=== PATIENT | male | born 1980 | race African-American/Black ===

== ENCOUNTER 2018-01-11 13:03 | Emergency (ER) | payer SELFPAY ==
[2018-01-11 13:46] LABS: ADD MAN DIFF? NO
[2018-01-11 13:47] LABS: BASOPHILS % 0.3 % (0.0-2.0); EOSINOPHILS # 0.1 10^3/ul (0.0-0.5); EOSINOPHILS % 0.9 % (0.0-7.0); HEMATOCRIT 48.1 % (42.0-52.0); HEMOGLOBIN 15.4 g/dl (14.0-18.0); LYMPHOCYTES # 1.6 10^3/ul (0.8-2.9); LYMPHOCYTES % 21.2 % (15.0-51.0); MEAN CORPUSCULAR HEMOGLOBIN 29.6 pg (29.0-33.0); MEAN CORPUSCULAR VOLUME 92.5 fl (82.0-101.0); MEAN PLATELET VOLUME 8.9 fl (7.4-10.4); MONOCYTE # 0.4 10^3/ul (0.3-0.9); MONOCYTES % 5.6 % (0.0-11.0); NEUTROPHIL # 5.4 10^3/ul (1.6-7.5); NEUTROPHILS % 71.9 % (39.0-77.0); PLATELET COUNT 252 10^3/UL (140-415); RED CELL DISTRIBUTION WIDTH 12.8 % (11.5-14.5)
[2018-01-11 13:47] LABS: WHITE BLOOD COUNT 7.6 10^3/ul (4.8-10.8)
[2018-01-11] MEDS: ASPIRIN 81 MG TAB PO (13:55)
[2018-01-11] MEDS: SOD CHLORIDE 0.9% 1,000 ML IV (13:55)
[2018-01-11 14:09] LABS: ALANINE AMINOTRANSFERASE 31 IU/L (13-69); ALBUMIN 4.7 g/dl (3.3-4.9); ALBUMIN/GLOBULIN RATIO 1.56; ALKALINE PHOSPHATASE 79 IU/L (42-121); ANION GAP 13 (8-16); ASPARTATE AMINO TRANSFERASE 26 IU/L (15-46); BILIRUBIN,INDIRECT 0.8 mg/dl (0-1.1); BILIRUBIN,TOTAL 0.8 mg/dl (0.2-1.3); BLOOD UREA NITROGEN 9 mg/dl (7-20); CALCIUM 10.2 mg/dl (8.4-10.2); CARBON DIOXIDE 26 mmol/L (21-31); CHLORIDE 110 mmol/L (97-110); CREATININE 1.16 mg/dl (0.61-1.24); GLUCOSE 121 mg/dl (70-220); LIPASE 102 U/L (23-300); POTASSIUM 4.9 mmol/L (3.5-5.1); SODIUM 144 mmol/L (135-144); TOTAL PROTEIN 7.7 g/dl (6.1-8.1)
[2018-01-11 14:10] LABS: ETHANOL < 10.0 mg/dl
[2018-01-11 14:20] LABS: TROPONIN-I < 0.010 ng/ml (0.000-0.120)
[2018-01-11] MEDS ORDERED: SOD CHLORIDE 0.9% 1,000 ML IV (15:44)
[2018-01-11] MEDS ORDERED: ONDANSETRON 4 MG INJ IV (16:00)
[2018-01-11] MEDS ORDERED: DOCUSATE SODIUM 100 MG CAP PO (16:00)
[2018-01-11] MEDS ORDERED: MAGNESIUM HYDROXIDE 30ML CUP PO (16:00)
[2018-01-11] MEDS ORDERED: HYDROCODONE/APAP (5/325) TAB PO (16:00)
[2018-01-11] MEDS ORDERED: LORAZEPAM 0.5 MG TAB PO (16:00)
[2018-01-11] MEDS ORDERED: NACL 0.9% 3 ML SYG IV (16:00)
[2018-01-11] MEDS ORDERED: ACETAMINOPHEN 325 MG TAB PO (16:00)
[2018-01-11] MEDS ORDERED: BISACODYL (EC) 5 MG TAB PO (16:00)
== END 2018-01-11 19:01 | disposition left against medical advice (07) ==
LOC: E/R 13:03
DX: R55 Syncope and collapse (principal); I48.91 Unspecified atrial fibrillation
CPT/HCPCS: 36415; 70450; 71045; 80053; 80307; 83690; 84484; 85025; 93005; 99285-25